=== PATIENT | male | born 1995 | race Hispanic/Latino ===

== ENCOUNTER 2023-05-24 18:16 | Emergency (ER) | payer OTHER ==
[~2023-05-24] VITALS: Ht 180.3 cm; Wt 77.6 kg
[2023-05-24] MEDS ORDERED: AUGM500T34 PO (20:59)
[2023-05-24] MEDS: AUGMENTIN 875 MG TAB PO ONE (21:04)
[2023-05-24 21:14] VITALS: BP 129/65; TEMP 98.2; O2SAT 99
== END 2023-05-24 21:07 | disposition home or self-care (01) ==
LOC: M ED 18:16
DX: S02.32XA Fracture of orbital floor, left side, initial encounter for closed fracture (principal); S02.2XXA Fracture of nasal bones, initial encounter for closed fracture; S00.12XA Contusion of left eyelid and periocular area, initial encounter; S02.40DA Maxillary fracture, left side, initial encounter for closed fracture; H11.32 Conjunctival hemorrhage, left eye; Y04.8XXA Assault by other bodily force, initial encounter; Y92.009 Unspecified place in unspecified non-institutional (private) residence as the place of occurrence of the external cause; Y93.9 Activity, unspecified; Y99.9 Unspecified external cause status